=== PATIENT | female | born 1990 | race Caucasian/White ===

== ENCOUNTER → 2016-05-07 | Outpatient (CLI) | payer MEDICAID ==
--- NOTE | 2016-05-07 17:13 | US ---
Ultrasound Obstetric second trimester, greater than 14 weeks Indication: Suspected poor growth. The estimated gestational age by LMP is 36 weeks and 5 days kamila martin an EDC of May 30, 2016. Comparison: February 2016 Findings: Number: 1 Presentation: Vertex Placental Location: Posterior Cervix: Not visualized. MVP: 8 cm Heart Rate: 133 bpm. Biometry: Biparietal Diameter: 82.8 mm 33 weeks, 3 days Head Circumference: 320.98 mm 36 weeks, 2 days Abdominal Circumference: 309.97 mm 35 weeks, 0 days Femur Length: 68.74 mm 35 weeks, 3 days Humerus Length: 57.95 mm 33 weeks, 4 days HC/AC: 1.04 (0.93-1.11) FL/BPD: 83% FL/AC: 22% Average Ultrasound Age: 35 weeks, 1 days EDC Based on Today's Average Ultrasound Age: June 10[birth year] 2016 Estimated weight is 2567 gms +/- 375 gms. The estimated weight is at the 14 % based on previous dating. ANATOMY PREVIOUSLY EVALUATED. LIMITED ANATOMY ON TODAY'S SCAN. FOUR-CHAMBER VIEW OF THE HEART, STOMACH, KIDNEYS, AND BLADDER DEMONSTRATE NO DEFINITE ABNORMALITIES. THE REST OF THE ANATOMY IS NOT W ELL VISUALIZED. Impression: 1. Living timmons in vertex presentation. 2. Size concordant with dates. 3. MVP 8 cm. 4. EFW 2567 grams at 14 percentile.
== END ==
LOC: FIMAGING 13:49
PROVIDERS: ATTEND Physician Assistant
DX: O36.5931 Maternal care for other known or suspected poor fetal growth, third trimester, fetus 1 (principal); Z3A.36 36 weeks gestation of pregnancy